=== PATIENT | female | born 1960 | race Caucasian/White ===

== ENCOUNTER 2025-07-05 16:02 | Inpatient (IN) | payer OTHER ==
[~2025-07-05] VITALS: Ht 152.4 cm; Wt 58.0 kg
[2025-07-05] MEDS: NS (Normal Saline) 0.9% 1,000 ML IV SCH ×2 (16:44→20:20)
[2025-07-05] MEDS: MORPHINE 4 MG/ML 1 ML VIAL IV PRN (16:44)
[2025-07-05] MEDS: ONDANSETRON 4MG 2ML VIAL IV ONE (16:45)
[2025-07-05 17:12] LABS: BASO # 0.0 10^3/uL (0.0-0.2); BASO % 0.2 % (0.0-1.0); EOS # 0.0 10^3/uL (0.0-0.5); EOS % 0.1 % (0.0-3.0); LYMPH # 0.6 10^3/uL (1.5-5.0); LYMPH % 4.4 % (24.0-44.0); MONO # 0.7 10^3/uL (0.0-0.8); MONO % 5.0 % (2.0-8.0); NEUTROPHILS # 12.5 10^3/uL (1.5-8.5); NEUTROPHILS % 89.7 % (36.0-66.0); PLATELET COUNT, AUTOMATED 206 10^3/uL (150-450)
[2025-07-05 17:26] LABS: INR 0.88
[2025-07-05 17:36] LABS: ALT/SGPT 17.0 U/L (7.0-40); AST/SGOT 21.0 U/L (<34); CALCIUM LEVEL 9.3 MG/DL (8.3-10.6); CARBON DIOXIDE LEVEL 21.0 MMOL/L (20-31); CHLORIDE LEVEL 104.0 MMOL/L (98-107); CREATININE FOR GFR 0.81 MG/DL (0.55-1.30); GLOMERULAR FILTRATION RATE 81.5 (>45); POTASSIUM SERUM 3.8 MMOL/L (3.5-5.1); SODIUM LEVEL 141.0 MMOL/L (136-145)
[2025-07-05] MEDS ORDERED: HOME MED LIST COMPLETE! XX SCH (19:25)
[2025-07-05] MEDS: DOCUSATE SODIUM 100 MG CAPSULE PO SCH (21:34)
[2025-07-05] MEDS: PERCOCET 5MG/325MG TAB PO PRN (21:36)
[2025-07-05 21:56] VITALS: BP 160/80; TEMP 97.5; O2SAT 100
[2025-07-05 22:34] VITALS: BP 146/80
[2025-07-06] VITALS (9 sets, daily range): BP systolic 100–150; BP diastolic 58–93; TEMP 96.8–98.7; O2SAT 91–100
[2025-07-06 06:36] LABS: PLATELET COUNT, AUTOMATED 179 10^3/uL (150-450)
[2025-07-06 07:01] LABS: CALCIUM LEVEL 7.7 MG/DL (8.3-10.6); CARBON DIOXIDE LEVEL 25.0 MMOL/L (20-31); CHLORIDE LEVEL 110.0 MMOL/L (98-107); CREATININE FOR GFR 0.76 MG/DL (0.55-1.30); GLOMERULAR FILTRATION RATE 88.0 (>45); POTASSIUM SERUM 4.2 MMOL/L (3.5-5.1); SODIUM LEVEL 138.0 MMOL/L (136-145)
[2025-07-06] MEDS: MORPHINE 4 MG/ML 1 ML VIAL IV PRN (08:47)
[2025-07-06] MEDS: TRANEXAMIC ACID 100 MG/ML 10ML VIAL As Ordered ONE (11:45)
[2025-07-06] MEDS ORDERED: MIDAZOLAM INJ 2 MG/2 ML VIAL As Ordered ONE (11:55)
[2025-07-06] MEDS ORDERED: LIDOCAINE 2% 100 MG/5 ML SDV (FOR ANES.) As Ordered ONE (11:55)
[2025-07-06] MEDS ORDERED: ROCURONIUM BROMIDE 50MG/5ML VIAL As Ordered ONE (11:55)
[2025-07-06] MEDS ORDERED: ONDANSETRON 4MG 2ML VIAL As Ordered ONE (13:00)
[2025-07-06] MEDS ORDERED: SUGAMMADEX SODIUM 200 MG/2 ML VIAL As Ordered ONE (13:01)
[2025-07-06] MEDS ORDERED: KETOROLAC 30 MG/ML 1 ML VIAL As Ordered ONE (13:03)
[2025-07-06] MEDS ORDERED: HYDROmorphone HCL 2 MG/ML 1 ML VIAL As Ordered ONE (13:03)
[2025-07-06] MEDS ORDERED: PHENYLephrine 500MCG 5ML (100MCG/ML) SYRINGE As Ordered ONE (13:09)
[2025-07-06] MEDS ORDERED: HYDROMORPHONE HCL 0.5 MG/0.5 ML SYRINGE IV PRN (14:25)
[2025-07-06] MEDS: ONDANSETRON 4MG 2ML VIAL IV PRN (14:58)
[2025-07-06] MEDS: ceFAZolin SOD 1 GM in DEXTROSE 5% (D5W) ADV/MINI-BAG 50 ML IV SCH (20:53)
[2025-07-07 03:00] VITALS: BP 121/76; TEMP 97.7; O2SAT 99
[2025-07-07 06:37] LABS: PLATELET COUNT, AUTOMATED 156 10^3/uL (150-450)
[2025-07-07 06:57] LABS: CALCIUM LEVEL 8.4 MG/DL (8.3-10.6); CARBON DIOXIDE LEVEL 26 MMOL/L (20-31); CHLORIDE LEVEL 106 MMOL/L (98-107); CREATININE FOR GFR 0.68 MG/DL (0.55-1.30); GLOMERULAR FILTRATION RATE > 90.0 (>45); POTASSIUM SERUM 3.8 MMOL/L (3.5-5.1); SODIUM LEVEL 139 MMOL/L (136-145)
[2025-07-07 08:00] VITALS: BP 132/64; TEMP 97.5; O2SAT 94
[2025-07-07 12:00] VITALS: BP 130/65; TEMP 97.3; O2SAT 94
[2025-07-07] MEDS: LIDOCAINE 5% PATCH TD ONE (13:01)
[2025-07-07] MEDS: ENOXAPARIN 40 MG/0.4 ML SYRINGE (J1650 PER 10MG) SC SCH (15:47)
[2025-07-07 16:00] VITALS: BP 99/58; TEMP 97.5; O2SAT 97
[2025-07-07 19:39] VITALS: BP 131/71; TEMP 97.1; O2SAT 95
[2025-07-08 05:05] VITALS: BP 130/77; TEMP 97.3; O2SAT 97
[2025-07-08 07:16] LABS: PLATELET COUNT, AUTOMATED 163 10^3/uL (150-450)
[2025-07-08 07:46] LABS: CALCIUM LEVEL 8.2 MG/DL (8.3-10.6); CARBON DIOXIDE LEVEL 26 MMOL/L (20-31); CHLORIDE LEVEL 107 MMOL/L (98-107); CREATININE FOR GFR 0.64 MG/DL (0.55-1.30); GLOMERULAR FILTRATION RATE > 90.0 (>45); POTASSIUM SERUM 3.7 MMOL/L (3.5-5.1); SODIUM LEVEL 141 MMOL/L (136-145)
[2025-07-08] MEDS ORDERED: MOM 30 ML SUSPENSION UDC PO PRN (08:00)
[2025-07-08] MEDS ORDERED: MIRALAX *UNIT DOSE* 17 GM PACKET PO PRN (08:00)
[2025-07-08] MEDS: SENNOSIDES/DOCUSATE SODIUM 8.6 MG/50MG TAB PO SCH (08:45)
[2025-07-08] MEDS ORDERED: OXYC-517 PO ×2 (10:43→10:46)
[2025-07-08] MEDS ORDERED: DOCU8.6T PO (10:43)
[2025-07-08] MEDS ORDERED: MIRA33506 PO (10:43)
[2025-07-08] MEDS ORDERED: LIDO5TD TD (10:46)
[2025-07-08] MEDS ORDERED: ASPI81TA26 PO (10:50)
[2025-07-08 12:00] VITALS: BP 125/79; TEMP 97.5; O2SAT 97
[2025-07-08] MEDS: LIDOCAINE 5% PATCH TD ONE (12:25)
== END 2025-07-08 13:18 | disposition home health service (06) | DRG 308 ==
LOC: M ED 16:02 → M ED INP 20:09 → M MSPAV 21:50
PROVIDERS: ADMIT Internal Medicine; ATTEND Internal Medicine
PROC: 0QS704Z Reposition Left Upper Femur with Internal Fixation Device, Open Approach (ICD-10-PCS; principal; 2025-07-06 13:30)
DX: S72.142A Displaced intertrochanteric fracture of left femur, initial encounter for closed fracture (principal); M54.59 Other low back pain; D72.829 Elevated white blood cell count, unspecified; W17.89XA Other fall from one level to another, initial encounter; Y92.009 Unspecified place in unspecified non-institutional (private) residence as the place of occurrence of the external cause

== ENCOUNTER → 2025-07-24 | Outpatient (CLI) | payer OTHER ==
[~2025-07-24] MED LIST: ASPI81TA26 PO; DOCU8.6T PO; LIDO5TD TD; MIRA33506 PO; OXYC-517 PO
== END ==
LOC: M SOG 07:21
PROVIDERS: ATTEND Physician Assistant
DX: M25.552 Pain in left hip (principal)

== ENCOUNTER → 2025-08-24 | Outpatient (CLI) | payer OTHER | LOC: M SOG 08:24 | PROVIDERS: ATTEND Physician Assistant | DX: S72.142D Displaced intertrochanteric fracture of left femur, subsequent encounter for closed fracture with routine healing (principal) ==